=== PATIENT | male | born 1945 | race Caucasian/White ===

== ENCOUNTER 2023-01-04 20:33 | Inpatient (IN) | payer MEDICARE, OTHER ==
[2023-01-04 21:21] LABS: #Basophils 0.1 10x3/uL (0.0-0.2); #Eosinphils 0.3 10x3/uL (0.0-0.5); #Monocytes 0.9 10x3/uL (0.0-1.1); #Neutrophils 9.2 10x3/uL (1.5-8.4); %Basophils 0.5 % (0.0-2.0); %Eosinophils 2.6 % (0.0-6.0); %Lymphocytes 18.7 % (18.0-47.0); %Monocytes 7.2 % (0.0-10.0); %Neutrophils 70.5 % (40.0-75.0); Hemoglobin 14.9 g/dL (13.5-17.5); Mean Corpuscular HGB CONC 34.6 g/dL (32.0-36.0); Mean Corpuscular Hemoglobin 30.2 pg (27.0-33.0); Mean Corpuscular Volume 87.4 fl (81.2-95.1); Mean Platelet Volume 9.7 fl (7.4-10.4); Platelet Count 256 10x3/uL (150-450); RBC Distribution Width 11.9 % (11.5-14.5); Red Blood Cell (RBC) Count 4.93 10x6/uL (4.32-5.72); White Blood Cell (WBC) Count 13.1 10x3/uL (3.5-10.5)
[2023-01-04 21:30] LABS: Prothrombin Time 10.5 sec (9.5-12.1)
[2023-01-04 21:32] LABS: ALT (SGPT) 15 U/L (8-55); AST (SGOT) 12 U/L (5-34); Albumin 4.1 g/dL (3.4-4.8); Alkaline Phosphatase 101 U/L (40-110); Anion Gap 15 mmol/L (10-20); BUN (Urea Nitrogen) 27 mg/dL (8.4-25.7); Bilirubin, Total 0.5 mg/dL (0.2-1.2); Calc. Creatinine Clearance 0 mL/min (70-130); Calcium 9.2 mg/dL (7.8-10.44); Carbon Dioxide 22 mmol/L (23-31); Chloride 103 mmol/L (98-107); Estimated GFR 33; Globulin 2.7 g/dL (2.4-3.5); Glucose 161 mg/dL (83-110); Potassium 3.9 mmol/L (3.5-5.1); Protein, Total 6.8 g/dL (5.8-8.1); Sodium 136 mmol/L (136-145)
[2023-01-04 21:55] LABS: CKMB 1.6 ng/mL (0-6.6)
[2023-01-04 22:15] LABS: SARS-CoV-2 NAA Rapid Test Not Detected (NotDetected)
[2023-01-04] MEDS ORDERED: Heparin 5,000 UNITS/ML VIAL ONE ×2 (22:47→23:16)
[2023-01-04] MEDS ORDERED: Heparin 25,000 units/D5W 500 ML ONE (22:48)
[2023-01-04] MEDS ORDERED: Acetaminophen 325 MG TAB PO PRN (23:14)
[2023-01-04] MEDS ORDERED: Heparin 10,000 UNITS/ 10 ML VIAL SLOW IVP SCH (23:15)
[2023-01-04] MEDS ORDERED: Heparin 25,000 units/D5W 500 ML IVPB SCH (23:15)
[2023-01-05 00:51] LABS: Platelet Count 251 10x3/uL (150-450)
[2023-01-05 01:00] LABS: Troponin I 0.067 ng/mL (< 0.028)
[2023-01-05 02:35] LABS: PTT Greater than 139.0 sec (22.0-33.0)
[2023-01-05 03:02] LABS: #Basophils 0.1 10x3/uL (0.0-0.2); #Eosinphils 0.4 10x3/uL (0.0-0.5); #Monocytes 0.9 10x3/uL (0.0-1.1); #Neutrophils 7.2 10x3/uL (1.5-8.4); %Basophils 0.6 % (0.0-2.0); %Eosinophils 3.2 % (0.0-6.0); %Lymphocytes 23.5 % (18.0-47.0); %Monocytes 7.9 % (0.0-10.0); %Neutrophils 64.4 % (40.0-75.0); Hemoglobin 13.6 g/dL (13.5-17.5); Mean Corpuscular HGB CONC 34.3 g/dL (32.0-36.0); Mean Corpuscular Hemoglobin 29.9 pg (27.0-33.0); Mean Platelet Volume 9.8 fl (7.4-10.4); Platelet Count 231 10x3/uL (150-450); RBC Distribution Width 11.9 % (11.5-14.5); Red Blood Cell (RBC) Count 4.55 10x6/uL (4.32-5.72); White Blood Cell (WBC) Count 11.2 10x3/uL (3.5-10.5)
[2023-01-05 03:19] LABS: Troponin I 0.061 ng/mL (< 0.028)
[2023-01-05 03:28] LABS: Anion Gap 15 mmol/L (10-20); BUN (Urea Nitrogen) 27 mg/dL (8.4-25.7); Calc. Creatinine Clearance 0 mL/min (70-130); Calcium 8.5 mg/dL (7.8-10.44); Carbon Dioxide 20 mmol/L (23-31); Chloride 108 mmol/L (98-107); Estimated GFR 38; Glucose 129 mg/dL (83-110); Potassium 4.2 mmol/L (3.5-5.1); Sodium 139 mmol/L (136-145)
[2023-01-05] MEDS: Lactated Ringer's 1,000 ML IV SCH ×3 (05:30→23:50)
[2023-01-05 05:50] LABS: Bilirubin Neg (Negative); Blood, Urine 150 (Negative); Clarity Slightly Cloudy (Clear); Glucose, Urine (Dipstick) Normal (Negative); Ketone, Urine Negative (Negative); Leukocyte 100 (Negative); Nitrite Negative (Negative); Protein, Urine (Dipstick) 100 mg/dl (Neg-Trace); Urobilinogen Normal mg/dL (Less than 2)
[2023-01-05 06:12] LABS: Bacteria/HPF Rare-Few HPF (None Seen); CAUTI Indications for Culture Dysuria,urgency,freq; Squamous Epithelial 0-3 HPF (0-3)
[2023-01-05 06:13] LABS: Urine Culture Reflex Yes Yes
[2023-01-05] MEDS ORDERED: Heparin 25,000 units/D5W 500 ML ONE (13:37)
[2023-01-05] MEDS ORDERED: Heparin 5,000 UNITS/ML VIAL ONE (15:36)
[2023-01-05 19:25] VITALS: BMI 33.9
[2023-01-05] MEDS: Atorvastatin Calcium 40 MG TAB PO SCH (21:34)
[2023-01-05] MEDS: Benzonatate 100 MG CAP PO PRN (23:25)
[2023-01-06 06:09] LABS: #Basophils 0.1 10x3/uL (0.0-0.2); #Eosinphils 0.4 10x3/uL (0.0-0.5); #Monocytes 0.7 10x3/uL (0.0-1.1); #Neutrophils 6.7 10x3/uL (1.5-8.4); %Basophils 0.7 % (0.0-2.0); %Eosinophils 3.6 % (0.0-6.0); %Lymphocytes 19.5 % (18.0-47.0); %Monocytes 7.4 % (0.0-10.0); %Neutrophils 68.3 % (40.0-75.0); Hemoglobin 13.3 g/dL (13.5-17.5); Mean Corpuscular HGB CONC 33.8 g/dL (32.0-36.0); Mean Corpuscular Volume 88.7 fl (81.2-95.1); Mean Platelet Volume 10.2 fl (7.4-10.4); Platelet Count 231 10x3/uL (150-450); RBC Distribution Width 11.9 % (11.5-14.5); Red Blood Cell (RBC) Count 4.43 10x6/uL (4.32-5.72); White Blood Cell (WBC) Count 9.7 10x3/uL (3.5-10.5)
[2023-01-06 06:30] LABS: Anion Gap 13 mmol/L (10-20); BUN (Urea Nitrogen) 22 mg/dL (8.4-25.7); Calc. Creatinine Clearance 66 mL/min (70-130); Calcium 9.4 mg/dL (7.8-10.44); Carbon Dioxide 23 mmol/L (23-31); Chloride 105 mmol/L (98-107); Estimated GFR 53; Glucose 117 mg/dL (83-110); Potassium 4.3 mmol/L (3.5-5.1); Sodium 137 mmol/L (136-145)
[2023-01-06] MEDS: Lactated Ringer's 1,000 ML IV SCH ×2 (07:24→09:31)
[2023-01-06] MEDS ORDERED: HumaLOG 300 UNITS/3 ML VIAL SC PRN ×2 (08:25)
[2023-01-06] MEDS ORDERED: Dextrose 50% Abboject 50 ML SYRINGE SLOW IVP PRN (08:25)
[2023-01-06] MEDS ORDERED: Dextrose 5% in Water 1,000 ML IV PRN (08:25)
[2023-01-06] MEDS ORDERED: Lactated Ringer's 1,000 ML IV SCH (08:30)
[2023-01-06] MEDS ORDERED: FLU VACC QS2022-23(65YR UP)/PF 240 MCG/0.7 ML SYRINGE IM ONE (09:00)
[2023-01-06] MEDS: Amlodipine 10 MG TAB PO SCH (09:05)
[2023-01-06] MEDS: Aspirin 81 mg Enteric Coated Tablet PO SCH (09:05)
[2023-01-06] MEDS: Benzonatate 100 MG CAP PO PRN ×2 (13:41→20:36)
[2023-01-06] MEDS: Apixaban 5 MG TAB PO SCH (20:36)
[2023-01-06] MEDS: Atorvastatin Calcium 40 MG TAB PO SCH (20:37)
[2023-01-07 04:33] LABS: Anion Gap 13 mmol/L (10-20); BUN (Urea Nitrogen) 23 mg/dL (8.4-25.7); Calc. Creatinine Clearance 59 mL/min (70-130); Carbon Dioxide 24 mmol/L (23-31); Chloride 106 mmol/L (98-107); Estimated GFR 46; Glucose 118 mg/dL (83-110); Potassium 4.7 mmol/L (3.5-5.1); Sodium 138 mmol/L (136-145)
[2023-01-07 04:54] LABS: #Basophils 0.1 10x3/uL (0.0-0.2); #Eosinphils 0.5 10x3/uL (0.0-0.5); #Monocytes 0.8 10x3/uL (0.0-1.1); %Basophils 0.8 % (0.0-2.0); %Eosinophils 5.8 % (0.0-6.0); %Monocytes 8.8 % (0.0-10.0); %Neutrophils 64.1 % (40.0-75.0); Hemoglobin 12.5 g/dL (13.5-17.5); Mean Corpuscular HGB CONC 33.5 g/dL (32.0-36.0); Mean Corpuscular Hemoglobin 29.6 pg (27.0-33.0); Mean Corpuscular Volume 88.2 fl (81.2-95.1); Mean Platelet Volume 10.1 fl (7.4-10.4); Platelet Count 237 10x3/uL (150-450); RBC Distribution Width 11.9 % (11.5-14.5); Red Blood Cell (RBC) Count 4.23 10x6/uL (4.32-5.72); White Blood Cell (WBC) Count 9.3 10x3/uL (3.5-10.5)
[2023-01-07] MEDS: Amlodipine 10 MG TAB PO SCH (09:14)
[2023-01-07] MEDS: Apixaban 5 MG TAB PO SCH ×2 (09:14→21:26)
[2023-01-07] MEDS ORDERED: Polyethylene Glycol 3350 17 GM Packet PO PRN (09:17)
[2023-01-07] MEDS: Aspirin 81 mg Enteric Coated Tablet PO SCH (10:06)
[2023-01-07] MEDS ORDERED: cefTRIAXone\\ROCEPHIN 1 GM in Sodium Chloride 0.9% 100 ML IVPB SCH (12:00)
[2023-01-07] MEDS: Atorvastatin Calcium 40 MG TAB PO SCH (21:26)
[2023-01-07] MEDS: guaiFENesin ER 600 MG TAB PO SCH (21:26)
[2023-01-07] MEDS: Docusate 100 MG CAP PO SCH (21:26)
[2023-01-08] MEDS: Amlodipine 10 MG TAB PO SCH (09:15)
[2023-01-08] MEDS: Apixaban 5 MG TAB PO SCH (09:17)
[2023-01-08] MEDS: Docusate 100 MG CAP PO SCH (09:18)
[2023-01-08] MEDS: guaiFENesin ER 600 MG TAB PO SCH (09:18)
[2023-01-08] MEDS ORDERED: cefTRIAXone\\ROCEPHIN 1 GM in Sodium Chloride 0.9% 100 ML IVPB SCH (11:00)
[2023-01-08 13:35] VITALS: BP 129/67; TEMP 98.1
[2023-01-10] MEDS ORDERED: Apixaban 5 MG TAB PO SCH (09:00)
== END 2023-01-08 13:35 | disposition home or self-care (01) | DRG 175 ==
LOC: CSHERS 20:33 → CSHERHOLD 23:14 → UNDOADMIN 01-05 01:36 → CSHTELE 01-05 18:00
PROVIDERS: ADMIT Family Medicine; ATTEND Internal Medicine
PROC: 5A09357 Assistance with Respiratory Ventilation, Less than 24 Consecutive Hours, Continuous Positive Airway Pressure (ICD-10-PCS; principal; 2023-01-05)
DX: I26.99 Other pulmonary embolism without acute cor pulmonale (principal); J96.01 Acute respiratory failure with hypoxia; I82.432 Acute embolism and thrombosis of left popliteal vein; N17.9 Acute kidney failure, unspecified; N39.0 Urinary tract infection, site not specified; I50.32 Chronic diastolic (congestive) heart failure; I13.0 Hypertensive heart and chronic kidney disease with heart failure and stage 1 through stage 4 chronic kidney disease, or unspecified chronic kidney disease; E78.5 Hyperlipidemia, unspecified; E11.22 Type 2 diabetes mellitus with diabetic chronic kidney disease; N18.30 Chronic kidney disease, stage 3 unspecified; Z20.822 Contact with and (suspected) exposure to COVID-19; K21.9 Gastro-esophageal reflux disease without esophagitis; E66.9 Obesity, unspecified; Z68.33 Body mass index [BMI] 33.0-33.9, adult; Z87.891 Personal history of nicotine dependence; Z98.890 Other specified postprocedural states
CPT/HCPCS: 36415; 36416; 71045; 78451; 80048; 80053; 81001; 82553; 83605; 83880; 84484; 85025; 85610; 85730; 87040; 87086; 93005; 93010; 93306; 93970; 94760; 96374; 96375; A9540; J0696; J1644; J3490; J7120; U0002

== ENCOUNTER 2023-05-12 16:31 | Observation (INO) | payer MEDICARE, OTHER ==
[2023-05-12 17:01] LABS: #Basophils 0.1 10x3/uL (0.0-0.2); #Monocytes 0.9 10x3/uL (0.0-1.1); #Neutrophils 16.6 10x3/uL (1.5-8.4); %Basophils 0.4 % (0.0-2.0); %Eosinophils 0.2 % (0.0-6.0); %Lymphocytes 5.4 % (18.0-47.0); %Monocytes 4.9 % (0.0-10.0); %Neutrophils 88.5 % (40.0-75.0); Mean Corpuscular HGB CONC 32.6 g/dL (32.0-36.0); Mean Corpuscular Hemoglobin 29.1 pg (27.0-33.0); Mean Corpuscular Volume 89.3 fl (81.2-95.1); Mean Platelet Volume 9.7 fl (7.4-10.4); Platelet Count 370 10x3/uL (150-450); RBC Distribution Width 12.3 % (11.5-14.5); Red Blood Cell (RBC) Count 4.47 10x6/uL (4.32-5.72); White Blood Cell (WBC) Count 18.8 10x3/uL (3.5-10.5)
[2023-05-12 17:25] LABS: ALT (SGPT) 27 U/L (8-55); AST (SGOT) 13 U/L (5-34); Albumin 3.6 g/dL (3.4-4.8); Alkaline Phosphatase 91 U/L (40-110); Anion Gap 16 mmol/L (10-20); BUN (Urea Nitrogen) 38 mg/dL (8.4-25.7); Bilirubin, Total 0.5 mg/dL (0.2-1.2); Calc. Creatinine Clearance 0 mL/min (70-130); Calcium 8.5 mg/dL (7.8-10.44); Carbon Dioxide 23 mmol/L (23-31); Chloride 109 mmol/L (98-107); Estimated GFR 27; Globulin 2.7 g/dL (2.4-3.5); Glucose 113 mg/dL (83-110); Magnesium 1.7 mg/dL (1.6-2.6); Potassium 4.5 mmol/L (3.5-5.1); Protein, Total 6.3 g/dL (5.8-8.1); Sodium 143 mmol/L (136-145)
[2023-05-12] MEDS ORDERED: cefTRIAXone (ROCEPHIN) 2 GM VIAL ONE (18:49)
[2023-05-12 19:07] LABS: Bilirubin Neg (Negative); Blood, Urine Negative (Negative); Clarity Clear (Clear); Glucose, Urine (Dipstick) Normal (Negative); Ketone, Urine 5 mg/dL (Negative); Leukocyte Negative (Negative); Nitrite Negative (Negative); Protein, Urine (Dipstick) Negative (Neg-Trace); Urobilinogen Normal mg/dL (Less than 2)
[2023-05-12 19:15] LABS: Bacteria/HPF Rare-Few HPF (None Seen); CAUTI Indications for Culture Alt mental st,lethar; RBC/HPF 0-3 HPF (0-3); Squamous Epithelial 0-3 HPF (0-3); WBC/HPF 0-3 HPF (0-3)
[2023-05-12 19:16] LABS: Urine Culture Reflex No No
[2023-05-12] MEDS ORDERED: Ondansetron ODT 4 MG TAB PO PRN (19:46)
[2023-05-12 20:33] LABS: Lactic Acid 1.6 mmol/L (0.5-2.2)
[2023-05-12 21:54] VITALS: BMI 29.3
[2023-05-12] MEDS ORDERED: Atorvastatin Calcium 40 MG TAB PO SCH (22:15)
[2023-05-12] MEDS: Apixaban 5 MG TAB PO SCH (22:24)
[2023-05-12] MEDS: Sodium Chloride 0.9% 1,000 ML IV SCH (22:25)
[2023-05-12] MEDS ORDERED: Triple Antibiotic Ointment 30 GM TUBE TOP SCH (22:45)
[2023-05-13 04:30] LABS: #Eosinphils 0.1 10x3/uL (0.0-0.5); #Monocytes 0.7 10x3/uL (0.0-1.1); #Neutrophils 9.5 10x3/uL (1.5-8.4); %Basophils 0.3 % (0.0-2.0); %Eosinophils 0.7 % (0.0-6.0); %Lymphocytes 12.8 % (18.0-47.0); %Monocytes 6.2 % (0.0-10.0); %Neutrophils 79.4 % (40.0-75.0); Hemoglobin 12.4 g/dL (13.5-17.5); Mean Corpuscular HGB CONC 32.8 g/dL (32.0-36.0); Mean Corpuscular Volume 88.5 fl (81.2-95.1); Mean Platelet Volume 9.8 fl (7.4-10.4); Platelet Count 362 10x3/uL (150-450); RBC Distribution Width 12.6 % (11.5-14.5); Red Blood Cell (RBC) Count 4.27 10x6/uL (4.32-5.72); White Blood Cell (WBC) Count 11.9 10x3/uL (3.5-10.5)
[2023-05-13 04:42] LABS: Anion Gap 11 mmol/L (10-20); BUN (Urea Nitrogen) 33 mg/dL (8.4-25.7); Calc. Creatinine Clearance 46 mL/min (70-130); Calcium 8.7 mg/dL (7.8-10.44); Carbon Dioxide 25 mmol/L (23-31); Chloride 109 mmol/L (98-107); Estimated GFR 40; Glucose 101 mg/dL (83-110); Potassium 4.3 mmol/L (3.5-5.1); Sodium 141 mmol/L (136-145)
[2023-05-13] MEDS: Sodium Chloride 0.9% 1,000 ML IV SCH ×2 (04:46→08:25)
[2023-05-13] MEDS: Apixaban 5 MG TAB PO SCH ×2 (08:25→20:25)
[2023-05-13] MEDS ORDERED: Atorvastatin Calcium 40 MG TAB PO SCH ×2 (09:00→21:00)
[2023-05-13] MEDS ORDERED: Dextrose 50% Abboject 50 ML SYRINGE SLOW IVP PRN (10:02)
[2023-05-13] MEDS ORDERED: Glucagon 1 MG/ML KIT IM PRN (10:02)
[2023-05-13] MEDS ORDERED: Dextrose 5% in Water 1,000 ML IV PRN (10:02)
[2023-05-13] MEDS ORDERED: HumaLOG 300 UNITS/3 ML VIAL SC PRN ×2 (10:02)
[2023-05-13] MEDS: Lactated Ringer's 1,000 ML IV SCH ×2 (11:10→15:01)
[2023-05-13] MEDS ORDERED: cefTRIAXone\\ROCEPHIN 2 GM in Sodium Chloride 0.9% 100 ML IVPB SCH (20:00)
[2023-05-13] MEDS ORDERED: Triple Antibiotic Ointment 30 GM TUBE TOP SCH ×2 (21:00)
[2023-05-14] MEDS: Lactated Ringer's 1,000 ML IV SCH (05:25)
[2023-05-14 08:03] LABS: #Basophils 0.1 10x3/uL (0.0-0.2); #Eosinphils 0.2 10x3/uL (0.0-0.5); #Monocytes 0.6 10x3/uL (0.0-1.1); %Basophils 0.6 % (0.0-2.0); %Eosinophils 2.1 % (0.0-6.0); %Lymphocytes 16.4 % (18.0-47.0); %Monocytes 6.7 % (0.0-10.0); %Neutrophils 73.7 % (40.0-75.0); Hemoglobin 11.5 g/dL (13.5-17.5); Mean Corpuscular Hemoglobin 28.5 pg (27.0-33.0); Mean Corpuscular Volume 89.1 fl (81.2-95.1); Mean Platelet Volume 9.7 fl (7.4-10.4); Platelet Count 354 10x3/uL (150-450); RBC Distribution Width 12.5 % (11.5-14.5); Red Blood Cell (RBC) Count 4.03 10x6/uL (4.32-5.72); White Blood Cell (WBC) Count 9.5 10x3/uL (3.5-10.5)
[2023-05-14 08:47] LABS: Anion Gap 11 mmol/L (10-20); BUN (Urea Nitrogen) 21 mg/dL (8.4-25.7); Calc. Creatinine Clearance 69 mL/min (70-130); Calcium 8.6 mg/dL (7.8-10.44); Carbon Dioxide 24 mmol/L (23-31); Chloride 106 mmol/L (98-107); Estimated GFR 65; Glucose 99 mg/dL (83-110); Potassium 4.7 mmol/L (3.5-5.1); Sodium 136 mmol/L (136-145)
[2023-05-14] MEDS: Apixaban 5 MG TAB PO SCH (11:01)
[2023-05-14 12:38] VITALS: BP 133/65; TEMP 98.6
== END 2023-05-14 13:09 | disposition home or self-care (01) ==
LOC: SUATTDRO 16:31 → CSHERS 16:31 → CSHTELE 21:33
PROVIDERS: ADMIT Family Medicine; ATTEND Internal Medicine
DX: R55 Syncope and collapse (principal); I26.99 Other pulmonary embolism without acute cor pulmonale; I10 Essential (primary) hypertension; E11.9 Type 2 diabetes mellitus without complications; E78.5 Hyperlipidemia, unspecified; D72.829 Elevated white blood cell count, unspecified; N17.9 Acute kidney failure, unspecified; Z79.01 Long term (current) use of anticoagulants; Z79.899 Other long term (current) drug therapy; Z79.84 Long term (current) use of oral hypoglycemic drugs
CPT/HCPCS: 71045; 80048 ×2; 81001; 82550; 82962 ×3; 83605; 83735; 84145; 84484; 85025 ×2; 87040; 87086; 93005; 93880; 94760; 96365; 96366; 97116; 99285; G0378 ×4; 36415; 36416; 80053; 84443; J0696; J3490; J7050; J7120

== ENCOUNTER 2024-05-19 21:32 | Emergency (ER) | payer MEDICARE, OTHER ==
[2024-05-19] MEDS ORDERED: Mag-Al Plus 1200/1200/120 MG (30 mL) UDCUP ONE (22:57)
[2024-05-19 23:12] LABS: #Basophils 0.08 10x3/uL (0.0-0.2); #Eosinphils 0.16 10x3/uL (0.0-0.5); #Monocytes 0.82 10x3/uL (0.0-1.1); #Neutrophils 5.47 10x3/uL (1.5-8.4); %Basophils 0.9 % (0.0-2.0); %Eosinophils 1.9 % (0.0-6.0); %Lymphocytes 23.8 % (18.0-47.0); %Monocytes 9.5 % (0.0-10.0); %Neutrophils 63.4 % (40.0-75.0); Hematocrit 40.6 % (38.8-50.0); Hemoglobin 14.3 g/dL (13.5-17.5); Mean Corpuscular HGB CONC 35.2 g/dL (32.0-36.0); Mean Corpuscular Hemoglobin 31.6 pg (27.0-33.0); Mean Corpuscular Volume 89.8 fL (81.2-95.1); Platelet Count 205 10x3/uL (150-450); RBC Distribution Width 11.9 % (11.5-14.5); Red Blood Cell (RBC) Count 4.52 10x6/uL (4.32-5.72); White Blood Cell (WBC) Count 8.6 10x3/uL (3.5-10.5)
[2024-05-19 23:21] LABS: ALT (SGPT) 16 U/L (8-55); AST (SGOT) 15 U/L (5-34); Albumin 3.9 g/dL (3.4-4.8); Alkaline Phosphatase 67 U/L (40-110); Anion Gap 14 mmol/L (10-20); BUN (Urea Nitrogen) 29 mg/dL (8.4-25.7); Bilirubin, Total 0.4 mg/dL (0.2-1.2); Calc. Creatinine Clearance 0 mL/min (70-130); Calcium 9.1 mg/dL (7.8-10.44); Carbon Dioxide 24 mmol/L (23-31); Chloride 102 mmol/L (98-107); Estimated GFR 39; Globulin 2.6 g/dL (2.4-3.5); Glucose 114 mg/dL (83-110); Potassium 3.8 mmol/L (3.5-5.1); Protein, Total 6.5 g/dL (5.8-8.1); Sodium 136 mmol/L (136-145)
== END 2024-05-20 00:50 | disposition home or self-care (01) ==
LOC: CSHERS 21:32
DX: K57.32 Diverticulitis of large intestine without perforation or abscess without bleeding (principal); I10 Essential (primary) hypertension; E11.9 Type 2 diabetes mellitus without complications; E78.5 Hyperlipidemia, unspecified; Z79.899 Other long term (current) drug therapy; Z75.3 Unavailability and inaccessibility of health-care facilities; Z79.85 Long-term (current) use of injectable non-insulin antidiabetic drugs
CPT/HCPCS: 36415; 74176; 80053; 85025